=== PATIENT | male | born 1950 | race Caucasian/White ===

== ENCOUNTER → 2017-04-07 | Outpatient (CLI) | payer OTHER ==
[2013-12-27 12:44] VITALS: BMI 24.5
[~2017-04-07] MED LIST: ALL300 PO; ALLO-2 PO; ASPI-1471 PO; ATOR10TA65 PO; ATOR20TA65 PO; ATR10 PO; CELE-1 PO; CEPH-13 PO; CEPH250C37 PO; FAMO-67 PO; FAMO20TA28 PO; IBUP800T37 PO; LISI-362 PO; LOR5/325 PO; METF-410 PO; MULT-865 PO; ONDA4TAB PO; OXYC-865 PO; PHEN200T32 PO; TAMS0.4C25 PO; TRAM-420 PO; ZOLP-358 PO
--- NOTE | 2017-04-07 14:33 | RADIOLOGY IMAGING REPORT ---
FACILITY: [facility] PATIENT NAME: Marco Dockery : 1950 MR: [id number] V: [id number] EXAM DATE: ORDERING PHYSICIAN: JAMAR CASTELAN TECHNOLOGIST: Location: [facility] - [place] Patient: Marco Dockery : 1950 Visit/Account:[id number] Date of Sevice: 04/07/2017 C SPINE W/O CONTRAST Provided history: left UE Numbness, neck pain Additional pertinent history: none TECHNIQUE: Multiplanar multisequence cervical MRI was performed without intravenous contrast. COMPARISON STUDIES: none FINDINGS: Extra-spinal soft tissues: Negative Cranio-cervical junction / included posterior fossa: normal Alignment: normal Osseous signal pattern: Moderate fatty replacement of the marrow of the right C4-5 facet pillar note d. No active edema pattern. Cervical cord: negative Disc Spaces: C2-C3: The disk reveals mild narrowing and degeneration. No evidence of disk herniation or cent ral stenosis. No significant foraminal stenosis. C3-C4: The disk reveals mild narrowing and degeneration. Mild symmetric bulging disk without si gnificant osteophyte formation and without significant central stenosis. Right lateralizing end-plat e spurs, facet and UV joint hypertrophy result in mild narrowing the right foramen. Left foramen nor mal. C4-C5: The disk reveals moderate narrowing and degeneration. Mild symmetric broad based disc-o steophyte complex Right lateralizing end-plate spurs, facet and UV joint hypertrophy result in meseret re narrowing of the right foramen. Left foramen normal. C5-C6: The disk reveals moderate narrowing and degeneration. Mild symmetric bulging disk withou t significant osteophyte formation and without significant central stenosis. Left lateralizing end-p late spurs, facet and UV joint hypertrophy result in moderate narrowing of the left foramen. Recomme nd normal. C6-C7: Disk height and signal pattern normal. No evidence of disk herniation or central stenosis . No significant foraminal stenosis. C7-T1: Disk height and signal pattern normal. No evidence of disk herniation or central stenosis . No significant foraminal stenosis. Upper T spine: negative IMPRESSION: Relatively mild degenerative changes are defined above. 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 Fatty replacement of the right facet pillar at this level indicates chronic dege neration. Correlate for right C5 nerve symptoms. Report Dictated By: Alon Phan MD at 04/07/2017 2:23 PM Report E-Signed By: Alon Phan MD at 04/07/2017 2:28 PM [id number]
== END ==
LOC: MRI 07:12
PROVIDERS: ATTEND Internal Medicine
DX: M50.322 Other cervical disc degeneration at C5-C6 level (principal); I10 Essential (primary) hypertension
CPT/HCPCS: 36415; 72141; 82565

== ENCOUNTER → 2017-05-01 | Outpatient (CLI) | payer OTHER ==
[2013-12-27 12:44] VITALS: BMI 24.5
== END ==
LOC: LAB 09:22
PROVIDERS: ATTEND Internal Medicine
DX: M50.30 Other cervical disc degeneration, unspecified cervical region (principal); M54.2 Cervicalgia; M79.645 Pain in left finger(s)
CPT/HCPCS: 36415; 85651; 86140; 86200; 86430

== ENCOUNTER → 2017-10-13 | Outpatient (CLI) | payer OTHER ==
[2013-12-27 12:44] VITALS: BMI 24.5
[~2017-10-13] MED LIST changes: +EZET10TA41 PO; -METF-410 PO; +METF-411 PO
--- NOTE | 2017-10-13 08:58 | EKG ---
FACILITY: [facility] - [place] PATIENT NAME: АННА DE SANTIAGO : [id number] MR: [id number] V: [id number] EXAM DATE: ORDERING PHYSICIAN: AUNDREA HARVEY TECHNOLOGIST: HAYDE Test Reason : PREOP-KNECK Blood Pressure : / mmHG Vent. Rate : 058 BPM Atrial Rate : 058 BPM P-R Int : 186 ms QRS Dur : 082 ms QT Int : 430 ms P-R-T Axes : 042 052 055 degrees QTc Int : 422 ms Sinus bradycardia Otherwise normal ECG When compared with ECG of 26-DEC-2013 12:19, No significant change was found Confirmed by AUNDREA LILLY ([id number]) on 10/13/2017 10:20:10 AM Referred By: WES Confirmed By:AUNDREA LILLY
== END ==
LOC: LAB 08:25
PROVIDERS: ATTEND Anesthesiology
DX: Z01.812 Encounter for preprocedural laboratory examination (principal); Z01.810 Encounter for preprocedural cardiovascular examination; M48.02 Spinal stenosis, cervical region
CPT/HCPCS: 36415; 82040; 82247; 82310; 82374; 82435; 82565; 82947; 84075; 84132; 84155; 84295; 84450; 84460; 84520; 93005